=== PATIENT | female | born 1980 | race Caucasian/White ===

== ENCOUNTER 2021-08-03 05:16 | Observation (INO) ==
--- NOTE | 2021-07-16 16:19 | PAT Medication Instructions ---
Medication Instructions Date of Service July 16, 2021 Home Medications acetaminophen 500 mg tablet (Tylenol Extra Strength) 500 mg PO Q6H PRN clindamycin phosphate 1 % topical gel 1 applic TOPICAL DAILY PRN MDD RASH hydroxychloroquine 200 mg tablet (Plaquenil) 200 mg PO BID hydroxyzine HCl 25 mg tablet 25 - 50 mg PO BID PRN insulin glargine 100 unit/mL subcutaneous solution (Lantus U-100 Insulin) 22 - 25 unit SUBCUT QPM insulin lispro 100 unit/mL subcutaneous pen (Humalog KwikPen (U-100) Insulin) 20 - 120 unit SUBCUT TID ondansetron HCl 4 mg tablet 4 mg PO Q8H PRN topiramate 100 mg tablet (Topamax) 100 mg PO BID Medical Marijuana 1 dose PO UD PRN baclofen 10 mg tablet 10 mg PO TID bupropion HCl 150 mg 24 hr tablet, extended release (Wellbutrin XL) 150 mg PO QAM cholecalciferol (vitamin D3) 25 mcg (1,000 unit) tablet (Vitamin D3) 25 mcg PO QAM cyanocobalamin (vitamin B-12) 1,000 mcg tablet 1,000 mcg PO QAM levothyroxine 150 mcg capsule (Tirosint) 150 mcg PO UD methotrexate sodium 2.5 mg tablet 2.5 mg PO UD pregabalin 100 mg capsule (Lyrica) 100 mg PO Q2D ASK your prescriber and surgeon hydroxychloroquine 200 mg tablet (Plaquenil) 200 mg PO BID methotrexate sodium 2.5 mg tablet 2.5 mg PO UD STOP taking 24 hours before surgery clindamycin phosphate 1 % topical gel 1 applic TOPICAL DAILY PRN MDD RASH DO NOT take the morning of surgery hydroxyzine HCl 25 mg tablet 25 - 50 mg PO BID PRN insulin lispro 100 unit/mL subcutaneous pen (Humalog KwikPen (U-100) Insulin) 20 - 120 unit SUBCUT TID Medical Marijuana 1 dose PO UD PRN baclofen 10 mg tablet 10 mg PO TID cholecalciferol (vitamin D3) 25 mcg (1,000 unit) tablet (Vitamin D3) 25 mcg PO QAM cyanocobalamin (vitamin B-12) 1,000 mcg tablet 1,000 mcg PO QAM Take morning of surgery With a small sip of water, OTHERWISE NOTHING TO EAT OR DRINK AFTER MIDNIGHT: acetaminophen 500 mg tablet (Tylenol Extra Strength) 500 mg PO Q6H PRN (okay to take up to 4 hours prior to surgery if needed) ondansetron HCl 4 mg tablet 4 mg PO Q8H PRN (if needed) topiramate 100 mg tablet (Topamax) 100 mg PO BID bupropion HCl 150 mg 24 hr tablet, extended release (Wellbutrin XL) 150 mg PO QAM levothyroxine 150 mcg capsule (Tirosint) 150 mcg PO UD pregabalin 100 mg capsule (Lyrica) 100 mg PO Q2D (okay to take if scheduled to take day of surgery) Take evening before surgery acetaminophen 500 mg tablet (Tylenol Extra Strength) 500 mg PO Q6H PRN (if needed) hydroxyzine HCl 25 mg tablet 25 - 50 mg PO BID PRN (if needed) insulin glargine 100 unit/mL subcutaneous solution (Lantus U-100 Insulin) 22 - 25 unit SUBCUT QPM insulin lispro 100 unit/mL subcutaneous pen (Humalog KwikPen (U-100) Insulin) 20 - 120 unit SUBCUT TID ondansetron HCl 4 mg tablet 4 mg PO Q8H PRN (if needed) topiramate 100 mg tablet (Topamax) 100 mg PO BID Medical Marijuana 1 dose PO UD PRN (if needed) baclofen 10 mg tablet 10 mg PO TID Other Notes If you have any questions please call us at [phone] or [phone] or [phone] or [phone]
--- NOTE | 2021-07-20 14:38 | Anesthesiology Consultation ---
Date of Service July 20, 2021 Assessment & Plan (1) Encounter for pre-operative examination: - Awaiting surgeon-ordered PCP clearance and preop CXR response. - Cardiology office visit (07/07/21): "History of paroxysmal SVT. She is status post EP study and ablation by Dr. Aaron on 04/10/2021 of inducible SVT consistent with AVNRT... From a cardiac standpoint she is doing quite well.. To the best of her knowledge she has not had recurrent SVT.. At this time we will continue conservative management. No indication for AV fox agents. In regards to her episodes of palpitations did consider event monitor however will hold off for now and see how she does." Follow-up 6 months recommended. - COVID screening: Per assessment on 07/20: Travel screen negative, no known COVID-19 positive contacts or current COVID-19 related symptoms. Patient vaccinated. Surgeon arranging preop COVID testing. Awaiting results. - Check , BSG test AM DOS - Hx PONV: Scope patch ordered for AM DOS Chart Review Chart Review: Patient seen in Pre Admission Testing Teaching & Discussion Pre-Anesthesia Teaching/Discussion Notes: Instructed NPO after midnight before surgery,except medications with 15 cc of water. Medication instructions provided according to the PAT guidelines. History Surgery Operation Date: 08/03/21 09:55 Proposed Procedures p C4-C6 Anterior Cervical Discectomy and Fusion, Spinal Cord Monitoring - Luis Yang, Height/Weight Height: 5 ft 5 in Weight: 94.3 kg Allergies Allergy/AdvReac Type Severity Reaction Status Date / Time carvedilol Allergy Intermediate Hives Verified 07/16/21 07:45 gluten Allergy Intermediate Celiac Verified 07/17/21 15:39 disease ibuprofen Allergy Intermediate Hives Verified 07/16/21 07:45 [From NeoProfen (ibuprofen lysn)(PF)] metoprolol Allergy Intermediate Hives Verified 07/16/21 07:45 sumatriptan Allergy Intermediate Hives Verified 07/16/21 07:45 promethazine [From Phenergan] AdvReac "Angry"/emotional Verified 07/20/21 15:12 changes (when oral use) Medications Home Medications Medication Instructions Recorded Confirmed Last Taken acetaminophen 500 mg tablet 500 mg PO Q6H PRN 04/06/21 04/06/21 Unknown (Tylenol Extra Strength) clindamycin phosphate 1 % topical 1 applic TOPICAL DAILY PRN MDD RASH 04/06/21 07/16/21 Unknown gel hydroxychloroquine 200 mg tablet 200 mg PO BID 04/06/21 07/16/21 Unknown (Plaquenil) hydroxyzine HCl 25 mg tablet 25 - 50 mg PO BID PRN 04/06/21 07/16/21 Unknown insulin glargine 100 unit/mL 22 - 25 unit SUBCUT QPM ml 04/06/21 07/16/21 Unknown subcutaneous solution (Lantus U-100 Insulin) insulin lispro 100 unit/mL 20 - 120 unit SUBCUT TID 04/06/21 07/16/21 Unknown subcutaneous pen (Humalog KwikPen (U-100) Insulin) ondansetron HCl 4 mg tablet 4 mg PO Q8H PRN 04/06/21 07/16/21 Unknown topiramate 100 mg tablet (Topamax) 100 mg PO BID 04/06/21 07/16/21 Unknown Medical Marijuana 1 dose PO UD PRN 07/16/21 07/16/21 Unknown baclofen 10 mg tablet 10 mg PO TID 07/16/21 07/16/21 Unknown bupropion HCl 150 mg 24 hr tablet, 150 mg PO QAM 07/16/21 07/16/21 Unknown extended release (Wellbutrin XL) cholecalciferol (vitamin D3) 25 25 mcg PO QAM 07/16/21 07/16/21 Unknown mcg (1,000 unit) tablet (Vitamin D3) cyanocobalamin (vitamin B-12) 1,000 mcg PO QAM 07/16/21 07/16/21 Unknown 1,000 mcg tablet levothyroxine 150 mcg capsule 150 mcg PO UD 07/16/21 07/16/21 Unknown (Tirosint) methotrexate sodium 2.5 mg tablet 2.5 mg PO UD 07/16/21 07/16/21 Unknown pregabalin 100 mg capsule (Lyrica) 100 mg PO Q2D 07/16/21 07/16/21 Unknown buspirone 5 mg tablet 5 mg PO TID 07/20/21 07/20/21 Unknown Past Medical History Medical History Anxiety and depression Celiac disease Diabetes mellitus type 1 IDDM Fatty liver Fibromyalgia Gastroparesis GERD (gastroesophageal reflux disease) Occasional Graves disease s/p total thyroidectomy History of kidney stones Hx of supraventricular tachycardia s/p ablation (03/2021) Follows with [facility] Migraine Peripheral neuropathy Postoperative hypothyroidism Rheumatoid arthritis Spinal stenosis Exercise / Class Metabolic Activity II 4-5 Yardwork/Stairs/Walk up hill (one FS (no CP, no SOB)) Past Family History Family History Mother Family history of diabetes mellitus Father Family history of diabetes mellitus Brother Family history of diabetes mellitus Past Surgical History Surgical History H/O cardiac radiofrequency ablation 03/2021 ([facility]) H/O sinus surgery H/O total thyroidectomy H/O wisdom tooth extraction History of delivery x3 History of cholecystectomy History of colonoscopy History of esophagogastroduodenoscopy (EGD) Past Anesthesia History Other ("slow to wake"/no known hx of reintubation) Mother (slow to wake) History of PONV History of PONV (*Improved when pretreatment and scope patch used*) and Hx of Motion Sickness Social History Smoking Status: Current every day smoker tobacco type: cigarettes Do You Dip or Chew Tobacco: No Smoking End Date: 10/25 PPD x 15 years Hx Alcohol Use: No Hx Substance Use: Yes substance use type: marijuana (Medical marijuana (+ card, oral daily > for pain management)) Review of Systems Patient denies chest pain, shortness of breath, dyspnea on exertion, fever, chills, cough, wheezing, palpitations. Physical Exam Vital Signs VITALS BP 115/74 P 71 TEMP 98.1 SP02 98%Ra RESP 16 PHYSICAL Decreased cervical extension range of motion. Full TMJ range of motion. TMD 3.5 finger breaths Mallampati Score 2 Dentition: intact Lungs: clear throughout to auscultation Cardiac: regular rate and rhythm, no murmurs noted Spine: normal Carotid arteries: negative bruit Extremities: no edema Lab Results Anesthesia Preop Results Results Anesthesia Widget: WBC 10.71 K/uL (4.8-10.8) 07/20/21 Hgb 14.1 g/dL (12.0-16.0) 07/20/21 Hct 42.0 % (37-47) 07/20/21 Plt 314 K/uL (130-400) 07/20/21 Na 139 mmol/L (136-145) 07/20/21 K 3.9 mmol/L (3.5-5.1) 07/20/21 Cl 110 mmol/L (98-107) H 07/20/21 CO2 22 mmol/L (21-32) 07/20/21 BUN 15 mg/dl (7-18) 07/20/21 Creat 0.93 mg/dl (0.6-1.2) 07/20/21 Glucose Level 158 mg/dl (70-99) H 07/20/21 PT 9.7 Seconds (9.0-12.0) 07/20/21 PTT 26.1 Seconds (21.0-31.0) 07/20/21 INR 1.0 (0.9-1.1) 07/20/21 HA1c 7.5 % (4.5-5.6) H 07/20/21 Urine Color Yellow 07/20/21 Urine Appearance Turbid (Clear) A 07/20/21 Urine pH 6.5 (4.5-7.5) 07/20/21 Urine Specific Treichlers 1.020 (1.000-1.030) 07/20/21 Urine Protein Negative (Negative) 07/20/21 Urine Glucose (UA) 1+ (Negative) H 07/20/21 Urine Ketones Negative (Negative) 07/20/21 Urine Blood 2+ (Negative) H 07/20/21 Urine Nitrite Negative (Negative) 07/20/21 Urine Bilirubin Negative (Negative) 07/20/21 Urine Urobilinogen Negative (Negative) 07/20/21 Urine Leukocyte Esterase 1+ (Negative) H 07/20/21 Urine WBC (Auto) >30 /hpf (0-5) H 07/20/21 Urine RBC (Auto) 10-30 /hpf (0-4) H 07/20/21 Urine Hyaline Casts (Auto) 1-5 /lpf (0-5) 07/20/21 Urine Epithelial Cells (Auto) >30 /lpf (0-5) H 07/20/21 Urine Bacteria (Auto) 2+ (Negative) H 07/20/21 Blood Type O Positive 07/20/21 Antibody Screen NEGATIVE 09/27/21 Lab Comments: Preop testing including positive UA forwarded to PCP to address at their discretion. Testing Electrocardiogram Date: 07/07/21 Findings: + NSR @ (75) Chest X-Ray Date: 07/20/21 No large infiltrates or consolidative lesions are seen. Minimal reticular prominence of pulmonary interstitium is seen within bilateral lower lungs, unclear if represent chronic fibrotic changes or pulmonary edema. The differential diagnosis could include scattered atelectasis. No large infiltrates or consolidative lesions. Questionable prominence of pulmonary interstitium at bilateral bases, please correlate above-mentioned findings with prior history.
[2021-08-03] MEDS ORDERED: GABAPENTIN 900 MG DOSE PO SCH (06:00)
[2021-08-03] MEDS ORDERED: CeleBREX 200 MG CAP PO SCH (06:00)
[2021-08-03] MEDS ORDERED: Scopolamine 1 MG TDSY TD SCH (06:00)
[2021-08-03] MEDS ORDERED: ceFAZolin 2000MG 2,000 MG/15 ML SYR IV SCH (06:00)
[2021-08-03] MEDS ORDERED: ACETAMINOPHEN 500 MG TAB PO SCH (06:00)
[2021-08-03] MEDS ORDERED: LR 15ML/HR IV SCH (06:00)
[2021-08-03] MEDS ORDERED: fentaNYL citrate 100 MCG/2 ML VIAL ONE ×3 (06:42→08:45)
[2021-08-03] MEDS ORDERED: MIDAZOLAM HCL 1 MG/ML 2ML VIAL ONE (06:42)
[2021-08-03] MEDS ORDERED: ONDANSETRON INJ 2 MG/ML 2 ML VIAL ONE ×2 (06:55→08:48)
[2021-08-03] MEDS ORDERED: LIDOCAINE 2% 2 ML VIAL/AMP(20MG/ML) INFIL ONE (06:55)
[2021-08-03] MEDS ORDERED: ROCURONIUM BROMIDE 10 MG/ML 5 ML VIAL IV ONE ×3 (06:55→08:48)
[2021-08-03] MEDS ORDERED: DEXAMETHASONE SOD INJ 4 MG/ML VIAL ONE ×2 (06:55→08:48)
[2021-08-03] MEDS ORDERED: PROPOFOL IV EMULSION 10 MG/ML 20 ML VIAL IV ONE (06:55)
[2021-08-03] MEDS: CeleBREX 200 MG CAP ONE ×2 (07:10→07:11)
[2021-08-03] MEDS ORDERED: ONDANSETRON INJ 2 MG/ML 2 ML VIAL IV PRN (07:22)
[2021-08-03] MEDS ORDERED: ePHEDrine sulfate 50 MG/ML AMP IV PRN (07:22)
[2021-08-03] MEDS ORDERED: PHENYLEPHRINE 100MCG/ML 5ML SYR IV PRN (07:22)
[2021-08-03] MEDS ORDERED: MEPERIDINE HCL 25 MG/ML CARP/VIAL IV PRN (07:22)
[2021-08-03] MEDS ORDERED: LABETALOL HCL IV 5 MG/ML 20ML IV PRN (07:22)
[2021-08-03] MEDS ORDERED: HYDROmorphone INJ 1 MG/ML SYRINGE IV PRN (07:22)
[2021-08-03] MEDS ORDERED: ATROPINE SULFATE 0.1 MG/ML 10ML SYR IV PRN (07:22)
--- NOTE | 2021-08-03 07:26 | History & Physical Bridge Note ---
Date of Service August 03, 2021 History & Physical Bridge Note I have examined the patient, reviewed the History & Physical and in the interval since the performance of the History & Physical I have noted the following changes of clinical significance: no changes noted
--- NOTE | 2021-08-03 07:28 | History & Physical Report ---
Date of Service August 03, 2021 Assessment & Plan (1) Herniation of cervical intervertebral disc with radiculopathy: Plan: C4-C6 anterior cervical discectomy and fusion History of Present Illness Chief Complaint: Neck and arm pain Primary Care Provider: Wayne Bowman This is a 40-year-old female presents with chronic persistent neck pain after failing course of nonoperative care she is here for surgical invention. Allergies Allergy/AdvReac Type Severity Reaction Status Date / Time carvedilol Allergy Intermediate Hives Verified 08/03/21 06:31 gluten Allergy Intermediate Celiac Verified 08/03/21 06:31 disease ibuprofen Allergy Intermediate Hives Verified 08/03/21 06:31 [From NeoProfen (ibuprofen lysn)(PF)] metoprolol Allergy Intermediate Hives Verified 08/03/21 06:31 sumatriptan Allergy Intermediate Hives Verified 08/03/21 06:31 promethazine [From Phenergan] AdvReac "Angry"/emotional Verified 08/03/21 06:31 changes (when oral use) Home Medications Medication Instructions Recorded Confirmed Type acetaminophen 500 mg tablet 500 mg PO Q6H PRN 04/06/21 08/03/21 History (Tylenol Extra Strength) clindamycin phosphate 1 % topical 1 applic TOPICAL DAILY PRN MDD RASH 04/06/21 08/03/21 History gel hydroxychloroquine 200 mg tablet 200 mg PO BID 04/06/21 08/03/21 History (Plaquenil) hydroxyzine HCl 25 mg tablet 25 - 50 mg PO BID PRN 04/06/21 08/03/21 History insulin glargine 100 unit/mL 22 - 25 unit SUBCUT QPM ml 04/06/21 08/03/21 History subcutaneous solution (Lantus U-100 Insulin) insulin lispro 100 unit/mL 20 - 120 unit SUBCUT TID 04/06/21 08/03/21 History subcutaneous pen (Humalog KwikPen (U-100) Insulin) ondansetron HCl 4 mg tablet 4 mg PO Q8H PRN 04/06/21 08/03/21 History topiramate 100 mg tablet (Topamax) 100 mg PO BID 04/06/21 08/03/21 History Medical Marijuana 1 dose PO UD PRN 07/16/21 08/03/21 History baclofen 10 mg tablet 10 mg PO TID 07/16/21 08/03/21 History bupropion HCl 150 mg 24 hr tablet, 150 mg PO QAM 07/16/21 08/03/21 History extended release (Wellbutrin XL) cholecalciferol (vitamin D3) 25 25 mcg PO QAM 07/16/21 08/03/21 History mcg (1,000 unit) tablet (Vitamin D3) cyanocobalamin (vitamin B-12) 1,000 mcg PO QAM 07/16/21 08/03/21 History 1,000 mcg tablet levothyroxine 150 mcg capsule 150 mcg PO UD 07/16/21 08/03/21 History (Tirosint) methotrexate sodium 2.5 mg tablet 2.5 mg PO UD 07/16/21 08/03/21 History buspirone 5 mg tablet 5 mg PO TID 07/20/21 08/03/21 History Past Med/Surg History Medical History (Updated 08/03/21 @ 07:27 by Luis Yang DO) Anxiety and depression Celiac disease Diabetes mellitus type 1 IDDM Fatty liver Fibromyalgia Gastroparesis GERD (gastroesophageal reflux disease) Occasional Graves disease s/p total thyroidectomy History of kidney stones Hx of supraventricular tachycardia s/p ablation (03/2021) Follows with [facility] Migraine Obesity Peripheral neuropathy Postoperative hypothyroidism Rheumatoid arthritis Spinal stenosis Surgical History H/O cardiac radiofrequency ablation 03/2021 ([facility]) H/O sinus surgery H/O total thyroidectomy H/O wisdom tooth extraction History of delivery x3 History of cholecystectomy History of colonoscopy History of esophagogastroduodenoscopy (EGD) Family History Mother Family history of diabetes mellitus Father Family history of diabetes mellitus Brother Family history of diabetes mellitus Social History (Updated 04/06/21 @ 15:01 by Yaquelin Ritter RN) Smoking Status: Current every day smoker Tobacco Type: Cigarettes Age Started Using Tobacco: 17; packs per day: 1; Years Smoked: 23; Cigarettes Per Day: PACK A DAY; Smoking End Date: 10/25 PPD x 15 years; Second Hand Exposure: Yes; Do You Dip or Chew Tobacco: No; Tobacco Cessation Education Requested by Patient: No Hx Alcohol Use: No Hx Substance Use: Yes Prescribed Medications: Marijuana Preferred Language: Bolivian Communication Ability: Effective Paperboard Box Maker Required: No Beliefs That Will Affect Care: None marital status: Current Living Situation: Family current occupational status: unemployed How many Children do You have: 3 Feels Safe at Home: Yes Safety Concerns: Feels Safe At This Time caffeine: No Dental Care, Regularly: No Physical Activity Frequency: Does not Exercise Seatbelt Use: always Sunscreen Use: Yes Assistive Devices: Contacts and Glasses Physical Exam Physical Exam: Patient is alert and oriented Heart regular in rhythm Lungs clear Results & Data ([facility]) Vital Signs (Past 12 Hours) Vital Signs Temp Pulse Resp BP Pulse Ox 08/03/21 06:41 36.7 C 71 18 119/74 97
[2021-08-03] MEDS ORDERED: FLOSEAL HEMOSTATIC MATRIX 10ML TOP ONE (08:10)
[2021-08-03] MEDS ORDERED: GLYCOPYRROLATE 0.2 MG/ML VIAL ONE (08:13)
[2021-08-03] MEDS ORDERED: NEOSTIGMINE METHYLSULFATE 1 MG/ML 10ML VIAL ONE (08:13)
--- NOTE | 2021-08-03 09:15 | Operative Report ---
Post Operative Report Pre & Post Diagnosis Operation Date: 08/03/21 07:45 Pre-Op Diagnosis: Spinal Stenosis, Cervical Region Post-Op Diagnosis: Spinal Stenosis, Cervical Region I identified the patient and participated in the time-out.: Yes Procedure Operation Date: 08/03/21 07:45 Actual Procedures #1 Anterior cervical discectomy with bilateral foraminotomies C4-5 and C5-C6. #2 anterior cervical arthrodesis C4-5 and C5-C6. #3 placement of 7 mm Spira cage filled with I factor C4-5 and 8 mm cage filled with I factor C5-C6. #4 application of 5 complete screws from C4-C6. Surgeon Luis Yang, DO Production Maintenance Technician Rosanna Alcantara Estimated Blood Loss 10 Findings See Below The patient is 5 foot 4 weighing over 94 kg with a BMI in excess of 35. The patient's body habitus did contribute to sick significant technical difficulty requiring her to retractors longer instruments in order to perform her decompression and fusion. Has had at least 25% increased operative time. Specimens None Indications This is a 40-year-old female who presents with marked decline in status with worsening neck and arm pain. She subsequently here for the above-mentioned procedure. Description of Procedure Patient was met with identified informed consent obtained. Patient was then taken to the operative suite underwent intubation placed in spine position Fransisco table head Avelar head R. All bony prominences well-padded eyes inspected to ensure no external pressure placed upon the. This point the anterior cervical spine was prepped and draped in a sterile fashion. The assistance of fluoroscopy notified the CT 5 vertebral body and a transverse incision was placed along the right anterior aspect of the cervical spine overlying his region. Blunt dissection with the assistance of bipolar electrocautery was then performed down to and exposing the anterior cervical spine from C3-4 to C6. Self-retaining tractor was placed. Then performed a complete discectomy of see for C5 out to the uncovertebral's bilaterally. Aguilar distraction pins were utilized to assist in visualization. Removed all posterior annular fibers longitudinal ligament bilateral rhomboids performed. Significant disc material was appreciated in the left neuroforamen. Endplates then burred to subcortically bone and the 7 mm spiral cage filled with I factor tapped in position. Then proceeded to C5-C6. Again complete discectomy performed out to the uncovertebral's bilaterally. Aguilar distractor pins again utilized. I did remove all posterior fibers longitudinal ligament bilateral foraminotomies performed to address any neural compression. The endplates were then burred to subcortically bone and an 8 mm spiral cage filled with I factor tapped in position. Distracting apparatus was removed and the anterior osteophytes burred to a smooth cortical surface. A 5 mm plate and screws applied with the assistance of fluoroscopy. The incision was then copiously irrigated explored to ensure no damage to surrounding structures remaining bleeding. 10 round DARREL drain inserted. Incision was then closed with 2 Vicryl in a fashion of 4 Monocryl for final skin closure. Steri-Strips dressings placed. Patient will continue PACU stable condition. Please note spinal cord monitoring was utilized at the procedure no changes noted. Lastly Rosanna Alcantara was present at the entire procedure and all the patient positioning complex portions of the surgery and final skin closure. I attest to the content of the Intraoperative Record and any orders documented therein. Any exceptions are noted below.
[2021-08-03] MEDS: fentaNYL citrate 100 MCG/2 ML VIAL IV PRN ×4 (09:35→09:55)
--- NOTE | 2021-08-03 09:40 | Fluoroscopy Report ---
FL cervical 2-3V CLINICAL HISTORY: C4-C6 ACDF COMPARISON STUDY: None. FLUOROSCOPY TIME: 10 seconds. FINDINGS: 2 fluoroscopic spot images of the cervical spine demonstrate anterior cervical discectomy a nd fusion from C4 through C6. The hardware appears intact. IMPRESSION: Fluoroscopy provided for C4-C6 ACDF. ACT 112: Negative or not required by law. Electronically signed by: Isai Ivory M.D. 08/03/2021 9:39 AM
--- NOTE | 2021-08-03 10:34 | Anesthesiology Progress Note ---
Date of Service August 03, 2021 Anesthesia Post Procedure Vital Signs Vital Signs: Temp Pulse Pulse Resp BP BP Pulse Ox 08/03/21 10:30 80 18 123/86 95 08/03/21 10:20 77 16 136/92 95 08/03/21 10:10 82 15 140/96 94 08/03/21 10:00 78 18 140/78 95 08/03/21 09:50 79 20 149/98 H 95 08/03/21 09:40 89 18 163/106 H 95 08/03/21 09:30 87 20 158/110 H 96 08/03/21 09:24 36.1 C L 82 16 162/104 H 96 08/03/21 06:41 36.7 C 71 18 119/74 97 Pain Intensity Medial Neck: Pain Intensity: 3 Transfer of Care Handoff Completed per policy Notes Mental Status: alert / awake / arousable Patient Amnestic to Procedure: Yes Nausea / Vomiting: adequately controlled Pain: adequately controlled Airway Patency, RR, SpO2: stable & adequate BP & HR: stable & adequate Hydration State: stable & adequate Anesthetic Complications: no major complications apparent and Pt Satisfied with anesthetic care Notes: The patient's dressing is dry and her neck is not swollen. The patient was told both preoperatively and in PACU to let her nurse know if she develops any shortness of breath or swelling in her neck on the floor.
[2021-08-03] MEDS ORDERED: ALUMINUM/MAGNESIUM SUSP 30 ML UDC PO PRN (11:46)
[2021-08-03] MEDS ORDERED: LORazepam 0.5 MG TAB PO PRN (11:46)
[2021-08-03] MEDS ORDERED: PHARMACY GLYCEMIC MGMT CONSULT PRN (11:46)
[2021-08-03] MEDS ORDERED: dexAMETHasone 8 MG in SYRINGE 0 ML IV PRN (11:46)
[2021-08-03] MEDS ORDERED: MAGNESIUM HYDROXIDE SUSP 30 ML UDC PO PRN (11:46)
[2021-08-03] MEDS ORDERED: bisacodyL 10 MG SUPP PR PRN (11:46)
[2021-08-03] MEDS ORDERED: METOCLOPRAMIDE HCL INJ 5 MG/ML 2 ML VIAL IV PRN (11:46)
[2021-08-03] MEDS ORDERED: traMADol HCL 50 MG TABLET PO PRN (11:46)
[2021-08-03] MEDS ORDERED: diphenhydrAMINE Capsule 25 MG CAP PO PRN (11:46)
[2021-08-03] MEDS ORDERED: ACETAMINOPHEN 500 MG TAB PO PRN (11:46)
[2021-08-03] MEDS ORDERED: PROMETHAZINE HCL 12.5 MG in SODIUM CHLORIDE 0.9% 50 ML IV PRN (11:46)
[2021-08-03] MEDS ORDERED: SOD PHOSPHATE/SOD BIPHOSPHATE ENEMA 132 ML BTL PR PRN (11:46)
[2021-08-03] MEDS ORDERED: FAMOTIDINE 20 MG TAB PO PRN (11:46)
[2021-08-03] MEDS ORDERED: DO NOT ADMINISTER PNEUMOCOCCAL VACCINE PRN (11:46)
[2021-08-03] MEDS ORDERED: DO NOT ADMINISTER FLU VACCINE PRN (11:46)
[2021-08-03] MEDS ORDERED: hydrOXYzine HCl 25 MG TAB PO PRN (11:46)
[2021-08-03] MEDS ORDERED: ONDANSETRON 4 MG OD TAB PO PRN ×2 (11:46→11:57)
[2021-08-03] MEDS ORDERED: HYDROmorphone INJ 0.5 MG/0.5 ML SYR IV PRN (11:46)
[2021-08-03] MEDS ORDERED: NALOXONE HCL 0.4 MG/1 ML VIAL/CARP IV PRN (11:46)
[2021-08-03] MEDS ORDERED: LORazepam 0.5 MG/1 ML VIAL IV PRN (11:46)
[2021-08-03] MEDS ORDERED: RACEPINEPHRINE 2.25% NEBU SOLN 0.5 ML VIAL INH PRN (11:46)
[2021-08-03] MEDS ORDERED: ACETAMINOPHEN 1,000 MG/100 ML VIAL IV PRN (11:46)
[2021-08-03] MEDS ORDERED: MEDICAL MARIJUANA PO PRN (12:15)
[2021-08-03] MEDS: SODIUM CHLORIDE 0.9% 1000ML 1,000 ML IV SCH ×2 (12:19→21:23)
[2021-08-03] MEDS: HYDROmorphone INJ 1 MG/ML SYRINGE IV PRN ×2 (12:25→17:49)
[2021-08-03] MEDS ORDERED: GLUCAGON FOR INJ 1 MG VIAL IM PRN (12:30)
[2021-08-03] MEDS ORDERED: DEXTROSE 50% 50 ML SYRINGE IV PRN (12:30)
[2021-08-03] MEDS ORDERED: GLUCOSE 10 TABS/TUBE PO PRN (12:30)
[2021-08-03] MEDS ORDERED: GLUCOSE 40% GEL 15 GM TUBE PO PRN (12:30)
[2021-08-03] MEDS ORDERED: CARBOHYDRATES FOR HYPOGLYCEMIA PO PRN (12:30)
--- NOTE | 2021-08-03 12:40 | Pharmacy Report ---
Pharmacy Glycemic Short Note 2 - Date of Service August 03, 2021 - Glycemic Short BSG Results (Last 24 hours): 08/03/21 08/03/21 08/03/21 05:37 09:27 12:08 POC Glucose 149 H 169 H 183 H OUTPATIENT ANTIDIABETIC REGIMEN: * Lantus 22-25 units SQ qPM * Humalog SSI TID (20-120 units) * HbA1c: 7.5% (07/20/21) ASSESSMENT: * Ms Stinson is a 40yo diabetic female POD 0 s/p spinal surgery with Dr Yang this morning. * Pt received intraoperative IV dexamethasone and is ordered daily IV DXM x3. This is expected to contribute to significant steroid-induced hyperglycemia. * Pt ordered aggressive SQ insulin regimen post-op in an effort to prevent significant hyperglycemia. * Will continue to monitor and adjust as required, particularly after steroid therapy has been completed. PLAN FOR INPATIENT GLYCEMIC CONTROL: * Basal insulin * Lantus 25 units SQ BID * Bolus insulin * NovoLog per scale ACHS or Q6hrs while NPO, plus an additional check at 0200 tonight * Goal Range: Low 110 mg/dL - High 140 mg/dL * Correction Factor: 15 mg/dL/unit * Nutritional / Prandial insulin per carb ratio of 1 unit per 6 grams CHO consumed PLAN FOR DISCHARGE: * A1c: 7.5% * This A1c indicates acceptable glycemic control as an outpt. Suspect that pt may resume home regimen on discharge, as long as she does not report episodes of hypoglycemia on current regimen. * If patient is discharged with ongoing steroid therapy, regimen will likely require adjustment.
[2021-08-03] MEDS: INSULIN ASPART 100 UNITS/ML 3 ML PEN SC SCH ×3 (13:33→21:21)
[2021-08-03] MEDS: INSULIN GLARGINE SOLOSTAR 100 UNITS/ML 3 ML PEN SC SCH ×2 (13:33→21:22)
[2021-08-03] MEDS: busPIRone 5 MG TAB PO SCH ×2 (13:34→20:00)
[2021-08-03] MEDS: BACLOFEN 10 MG TAB PO SCH ×2 (13:34→20:00)
[2021-08-03] MEDS: oxyCODONE HCL IR 5 MG TAB (IMMEDIATE RELEASE) PO PRN ×2 (14:58→21:28)
[2021-08-03] MEDS: Scopolamine CHECK PATCH PLACEMENT SCH ×2 (16:14→23:42)
[2021-08-03] MEDS: ceFAZolin 2000MG 2,000 MG/15 ML SYR IV SCH ×2 (16:14→23:40)
[2021-08-03] MEDS: ONDANSETRON INJ 2 MG/ML 2 ML VIAL IV PRN (18:23)
[2021-08-03] MEDS: HYDROXYCHLOROQUINE SULFATE 200 MG TAB PO SCH (19:59)
[2021-08-03] MEDS: TOPIRAMATE 100 MG TAB PO SCH (20:00)
[2021-08-03] MEDS ORDERED: DOCUSATE SODIUM/SENNA 50/8.6MG TAB PO SCH (21:00)
[2021-08-04] MEDS ORDERED: INSULIN ASPART 100 UNITS/ML 3 ML PEN SC SCH (02:00)
[2021-08-04] MEDS: oxyCODONE HCL IR 5 MG TAB (IMMEDIATE RELEASE) PO PRN (03:55)
[2021-08-04] MEDS: ONDANSETRON INJ 2 MG/ML 2 ML VIAL IV PRN (04:35)
[2021-08-04] MEDS: LEVOTHYROXINE SODIUM 150 MCG TABLET PO SCH ×2 (05:52→06:04)
[2021-08-04] MEDS ORDERED: POLYETHYLENE (MIRALAX) 17 GM PACK PO SCH (06:00)
[2021-08-04] MEDS: busPIRone 5 MG TAB PO SCH (07:35)
[2021-08-04] MEDS: BACLOFEN 10 MG TAB PO SCH (07:35)
[2021-08-04] MEDS: Scopolamine CHECK PATCH PLACEMENT SCH (07:36)
[2021-08-04] MEDS: TOPIRAMATE 100 MG TAB PO SCH (07:37)
[2021-08-04] MEDS: HYDROXYCHLOROQUINE SULFATE 200 MG TAB PO SCH (08:48)
--- NOTE | 2021-08-04 08:55 | Discharge Summary ---
Date of Service August 04, 2021 Admission HPI Per Admitting Provider This is a 40-year-old female presents with chronic persistent neck pain after failing course of nonoperative care she is here for surgical invention. Principal Diagnosis Cervical radiculopathy Discharge Data Allergies Allergy/AdvReac Type Severity Reaction Status Date / Time carvedilol Allergy Intermediate Hives Verified 08/03/21 06:31 gluten Allergy Intermediate Celiac Verified 08/03/21 06:31 disease ibuprofen Allergy Intermediate Hives Verified 08/03/21 06:31 [From NeoProfen (ibuprofen lysn)(PF)] metoprolol Allergy Intermediate Hives Verified 08/03/21 06:31 sumatriptan Allergy Intermediate Hives Verified 08/03/21 06:31 promethazine [From Phenergan] AdvReac "Angry"/emotional Verified 08/03/21 06:31 changes (when oral use) Procedures Performed Operation Date: 08/03/21 07:45 Actual Procedures p C4-C6 Anterior Cervical Discectomy and Fusion, Spinal Cord Monitoring(Not Applicable) - Luis Yang DO Ordered Studies 08/03/21 07:00 FL cervical 2-3V Routine Hospital Course (1) Herniation of cervical intervertebral disc with radiculopathy: Patient went anterior cervical discectomy fusion [facility] posting orthopedic for possibly. Postop day 1 she was up and ambulating swallowing well no hoarse ness. Arm symptoms markedly improved. Excellent strength testing. DARREL drain decreasing probably. Subsequent discharge home. Discharge orders instructions were on the chart for further review. Total Time Total Time Spent Total Time Spent (In Minutes): 20 minutes Discharge Plan Discharge Items Patient Disposition: Home - Self-Care Reason For Visit: Spinal Stenosis, Cervical Region Discharge Diagnosis: Cervical spinal stenosis with radiculopathy Activity: As commented below Non-emergency contact: Primary Care Provider Call non-emergency contact if: you have any medication questions Follow-up/Referrals: Wayne Bowman PA-C [Primary Care Provider] - Diet: Regular Addtl Attending Provider Instructions: ACTIVITY RECOMMENDATIONS: SELF CARE INSTRUCTIONS AFTER CERVICAL FUSIONS 1. No smoking. Smoking drastically decreases the chance of a solid fusion. 2. No bending, lifting more than 5 pounds, or twisting (roll like a log when turning in bed). 3. You may shower 3 days after surgery. Thoroughly dry wound. Do not soak in the tub. 4. Cervical collar: Must be worn at all times including sleeping. You may remove the brace only to bath, eat and if you are sitting in a recliner. 5. Please walk as much as you can for exercise. Gradually increase the distance that you walk as your endurance increases. SPECIAL CARE INSTRUCTIONS: VERY IMPORTANT TO READ AND REVIEW A. Do not take any anti-inflammatory medications (i.e. Indocin, Advil, Aspirin, Naprosyn, Aleve, Motrin, etc.) as these may inhibit the chance of a solid fusion. Tylenol is okay to take. B. Your surgical incision has been closed with a cosmetic suture under the skin that will dissolve in about 6 weeks. In 14 days, you can use a pair of clean scissors and cut the suture that is left outside of the skin at the ends of your incision. C. Complications are uncommon, but please contact us if you have any signs or symptoms of: 1. wound infection (fever higher than 102.5 degrees F, redness, separation of wound, drainage, or increasing pain from the incision) 2. blood clots in legs (pain, swelling, redness and warmth in legs) 3. urinary tract infection (fever higher than 102.5 degrees, burning upon urination or increased frequency of urination) 4. nerve problems (inability to walk on your toes or heels, numbness, loss of bowel or bladder control) 5. any other symptoms that concern you. D. Please call the office at if you have any concerns or questions about your operation or recovery. MANAGING PAIN AFTER SPINAL SURGERY 1. Narcotic medication is intended for short-term use and will be provided for surgical pain. Surgical pain usually lasts for a period of 4-6 weeks. Narcotic medication includes Percocet, Vicodin, Darvocet, Tylenol #3 or Lortab. 2. Longer-term pain is more appropriately treated with non-narcotic medication such as Tylenol ES. 3. Muscle spasm is not appropriately treated with narcotics. Muscle relaxers such as Soma, Flexeril or Skelaxin can be used along with Tylenol ES. 4. Remember that we all live with some "aches and pains". This is not unusual or uncommon after an injury or as we get older. 5. We will provide appropriate medication within the normal guidelines of their prescribed use. We will also be very cautious and aware of potential abuse and extended duration of patients' medication needs. 6. Please allow 2-3 days to process refills. Prescriptions will not be mailed but must be picked up at the office. FOLLOW UP VISIT: Keep your scheduled follow-up appointment. Any questions, please call the office at . Pending Studies at Discharge: No Stand-Alone Forms: My [facility] [employer], Smoking Cessation Medications and DC Order Prescriptions: New oxycodone 5 mg tablet 5 mg PO Q6H PRN (Reason: pain, severe) Qty: 20 RF: 0 tramadol 50 mg tablet 50 mg PO Q6H PRN (Reason: pain, moderate) Qty: 20 RF: 0 Continued clindamycin phosphate 1 % gel 1 applic topical DAILY MDD RASH PRN (Reason: prn) RF: 0 ondansetron HCl 4 mg tablet 4 mg PO Q8H PRN (Reason: prn) RF: 0 hydroxyzine HCl 25 mg tablet 25 - 50 mg PO BID PRN (Reason: Anxiety) RF: 0 topiramate [Topamax] 100 mg tablet 100 mg PO BID RF: 0 hydroxychloroquine [Plaquenil] 200 mg tablet 200 mg PO BID RF: 0 acetaminophen [Tylenol Extra Strength] 500 mg tablet 500 mg PO Q6H PRN (Reason: Pain) RF: 0 insulin lispro [Humalog KwikPen Insulin] 100 unit/mL insulin pen 20 - 120 unit subcut TID RF: 0 Lantus U-100 Insulin 100 unit/mL solution 22 - 25 unit subcut QPM RF: 0 cyanocobalamin (vitamin B-12) 1,000 mcg Tablet 1,000 mcg PO QAM RF: 0 baclofen 10 mg Tablet 10 mg PO TID RF: 0 bupropion HCl [Wellbutrin XL] 150 mg Tablet Extended Release 24 Hr 150 mg PO QAM RF: 0 cholecalciferol (vitamin D3) [Vitamin D3] 25 mcg (1,000 unit) Tablet 25 mcg PO QAM RF: 0 levothyroxine [Tirosint] 150 mcg Capsule 150 mcg PO UD RF: 0 Medical Marijuana 1 dose PO UD PRN (Reason: Pain) RF: 0 buspirone 5 mg Tablet 5 mg PO TID RF: 0 Discontinued methotrexate sodium 2.5 mg Tablet 2.5 mg PO UD RF: 0 Discharge Orders: Discharge Order (Routine); Ordered 08/04/21 Ordered By: Luis Yang Admission Data Admit Date/Time: 08/03/21 09:20 Attending Provider: Luis Yang Admit Provider: Luis Yang Primary Care Provider: Wayne Bowman
[2021-08-04] MEDS ORDERED: CHOLECALCIFEROL 1,000 UNITS 25 MCG TAB PO SCH (09:00)
[2021-08-04] MEDS ORDERED: dexAMETHasone 6 MG in SYRINGE 0 ML IV SCH (09:00)
[2021-08-04] MEDS ORDERED: buPROPion XL 150 MG TABCR PO SCH (09:00)
[2021-08-04] MEDS ORDERED: CYANOCOBALAMIN 500 MCG TABLET (VITAMIN B-12) PO SCH (09:00)
[2021-08-04] MEDS: INSULIN ASPART 100 UNITS/ML 3 ML PEN SC SCH (09:26)
[2021-08-04] MEDS ORDERED: INSULIN GLARGINE SOLOSTAR 100 UNITS/ML 3 ML PEN SC SCH (21:00)
== END 2021-08-04 11:16 | disposition home or self-care (01) ==
LOC: ASU 05:16 → 3E 09:20 → INTOOBSV 09:20